=== PATIENT | male | born 1960 | race Caucasian/White ===

== ENCOUNTER 2022-07-29 16:02 | Inpatient (IN) | payer OTHER, MEDICAID ==
[~2022-07-29] VITALS: Ht 177.8 cm; Wt 64.4 kg
[2022-07-29 16:22] VITALS: BP_SYST 134
[2022-07-29 17:11] LABS: BASOPHILS % (AUTO) 0.7 % (0.0-2.0); EOSINOPHILS # (AUTO) 0.1 K/uL (0.0-0.4); EOSINOPHILS % (AUTO) 2.4 % (0.0-4.0); HEMATOCRIT 22.1 % (36-54); HEMOGLOBIN 7.5 g/dL (14.0-18.0); LYMPHOCYTES # (AUTO) 0.9 K/uL (1.0-5.5); LYMPHOCYTES % (AUTO) 17.4 % (20.5-51.5); MEAN CORPUSCULAR HEMOGLOBIN 33 pg (27-31); MEAN CORPUSCULAR HGB CONC 34 % (32-36); MEAN CORPUSCULAR VOLUME 96 fL (79.0-98.0); MONOCYTES # (AUTO) 0.5 K/uL (0.0-1.0); MONOCYTES % (AUTO) 10.1 % (1.7-9.3); NEUTROPHILS # (AUTO) 3.6 K/uL (1.8-7.7); NEUTROPHILS % (AUTO) 69.4 % (40.0-70.0); PLATELET COUNT (AUTO) 204 K/uL (130-430); RED CELL DISTRIBUTION WIDTH 16.9 % (9.0-15.0); WHITE BLOOD COUNT (AUTO) 5.2 K/uL (4.8-10.8)
[2022-07-29] MEDS ORDERED: FOLI0.8T42 GT (17:20)
[2022-07-29] MEDS ORDERED: LEVO750T64 GT (17:20)
[2022-07-29] MEDS ORDERED: EPOE3000 IJ (17:20)
[2022-07-29] MEDS ORDERED: XOP.63 NEB (17:20)
[2022-07-29] MEDS ORDERED: ACET160S2 GT (17:20)
[2022-07-29] MEDS ORDERED: ASCO500T20 GT (17:20)
[2022-07-29] MEDS ORDERED: DORZ10DR9 LEFT EYE (17:20)
[2022-07-29] MEDS ORDERED: SSNOVOLOG SUBCUT (17:20)
[2022-07-29] MEDS ORDERED: HYDR-3917 PO (17:20)
[2022-07-29] MEDS ORDERED: GLUC1KIT IJ (17:20)
[2022-07-29] MEDS ORDERED: APIX2.5T GT (17:20)
[2022-07-29] MEDS ORDERED: BRI.2% RIGHT EYE (17:20)
[2022-07-29] MEDS ORDERED: LORA-259 GT (17:20)
[2022-07-29] MEDS ORDERED: FER300L GT (17:20)
[2022-07-29] MEDS ORDERED: MIDO2.5T GT (17:20)
[2022-07-29 17:28] LABS: ANION GAP 7 (5-15); CHLORIDE 97 mmol/L (98-107); CREATININE 2.78 mg/dL (0.55-1.30); GFR AFRICAN AMERICAN 30 mL/min (>90); GLUCOSE 106 mg/dL (70-99); UREA NITROGEN, BLOOD 45 mg/dL (8-21)
[2022-07-29 17:35] LABS: ALANINE AMINOTRANSFERASE 7 U/L (12-78); ALBUMIN 1.6 g/dL (3.4-4.8); ASPARTATE AMINOTRANSFERASE 13 U/L (10-37); TOTAL BILIRUBIN 0.4 mg/dL (0.0-1.0)
[2022-07-29] MEDS ORDERED: ZOLPIDEM TARTRATE 5 MG TABLET PO PRN (18:15)
[2022-07-29] MEDS ORDERED: DOCUSATE SODIUM 100 MG CAPSULE PO PRN (18:15)
[2022-07-29] MEDS ORDERED: POTASSIUM CHLORIDE 20 MEQ TAB.PRT.SR PO PRN (18:15)
[2022-07-29] MEDS ORDERED: MORPHINE 2 MG/ML INJ. SYRINGE IVP PRN ×2 (18:15)
[2022-07-29] MEDS ORDERED: MUPIROCIN 2% TOPICAL OINTMENT 22 GM NS PRN (18:15)
[2022-07-29] MEDS ORDERED: MAGNESIUM SULFATE 50 ML IV PRN (18:15)
[2022-07-29] MEDS ORDERED: ACETAMINOPHEN 325 MG TABLET PO PRN ×2 (18:15→18:30)
[2022-07-29] MEDS ORDERED: LORazepam 2 MG/ML VIAL IVP PRN (18:15)
[2022-07-29 18:40] LABS: TOTAL IRON BIND. CAPACITY 134 ug/dL (250-450)
[2022-07-29] MEDS: D5NS 1,000 ML IV SCH (20:46)
[2022-07-29] MEDS ORDERED: HEPARIN SODIUM,PORCINE 5,000 UNITS/ML VIAL SUBCUT SCH (21:00)
[2022-07-29 21:06] VITALS: BP_SYST 144
[2022-07-29] MEDS: ONDANSETRON HCL 4 MG/2 ML VIAL IVP PRN (21:51)
[2022-07-29 23:00] VITALS: BP_SYST 144
[2022-07-30] VITALS (8 sets, daily range): BP systolic 124–149
[2022-07-30] MEDS: D5NS 1,000 ML IV SCH ×2 (05:23→14:30)
[2022-07-30] MEDS ORDERED: DEXTROSE 50% JECT 50 ML DISP.SYRIN IVP PRN (08:00)
[2022-07-30] MEDS ORDERED: INSULIN LISPRO SLIDING SCALE 100 UNITS/ML, 3 ML VIAL (humaLOG) SUBCUT PRN (08:00)
[2022-07-30] MEDS ORDERED: APIXABAN 2.5 MG TABLET GT SCH (09:00)
[2022-07-30] MEDS: FERROUS SULFATE 300 MG/5 ML UDC GT SCH ×2 (09:05→21:48)
[2022-07-30] MEDS: ASCORBIC ACID 500 MG TABLET GT SCH (09:05)
[2022-07-30] MEDS ORDERED: LIPASE/PROTEASE/AMYLASE 1 CAP GT ONE (09:30)
[2022-07-30 09:55] LABS: CALCIUM 7.7 mg/dL (8.4-11.0); CREATININE 3.2 mg/dL (0.55-1.30)
[2022-07-30 10:19] LABS: BASOPHILS % (AUTO) 0.7 % (0.0-2.0); EOSINOPHILS # (AUTO) 0.1 K/uL (0.0-0.4); EOSINOPHILS % (AUTO) 1.1 % (0.0-4.0); LYMPHOCYTES # (AUTO) 0.9 K/uL (1.0-5.5); LYMPHOCYTES % (AUTO) 16.2 % (20.5-51.5); MEAN CORPUSCULAR HEMOGLOBIN 32 pg (27-31); MEAN CORPUSCULAR HGB CONC 33 % (32-36); MEAN CORPUSCULAR VOLUME 98 fL (79.0-98.0); MONOCYTES # (AUTO) 0.4 K/uL (0.0-1.0); MONOCYTES % (AUTO) 6.6 % (1.7-9.3); NEUTROPHILS # (AUTO) 4.1 K/uL (1.8-7.7); NEUTROPHILS % (AUTO) 75.4 % (40.0-70.0); PLATELET COUNT (AUTO) 193 K/uL (130-430); RED BLOOD CELL COUNT(AUTO) 2.01 MIL/uL (4.2-6.2); RED CELL DISTRIBUTION WIDTH 16.5 % (9.0-15.0); WHITE BLOOD COUNT (AUTO) 5.5 K/uL (4.8-10.8)
[2022-07-30 10:25] LABS: HEMOGLOBIN 6.4 g/dL (14.0-18.0)
[2022-07-30 10:26] LABS: HEMATOCRIT 19.7 % (36-54)
[2022-07-30] MEDS ORDERED: PANTOPRAZOLE SODIUM 40 MG/VIAL (PROTONIX) IVP ONE (12:00)
[2022-07-30] MEDS: DORZOLAMIDE 2% OPHTHALMIC SOLN 5ML OP SCH ×2 (12:08→21:48)
[2022-07-30] MEDS: BRIMONIDINE TARTRATE 0.2% 5 mL EYE DROPS RIGHT EYE SCH ×2 (12:08→21:47)
[2022-07-30] MEDS ORDERED: GOLYTELY / COLYTE SOLUTION 4 LITERS GT ONE (18:00)
[2022-07-31 00:45] VITALS: BP_SYST 141
[2022-07-31] MEDS: ONDANSETRON HCL 4 MG/2 ML VIAL IVP PRN (03:05)
[2022-07-31] MEDS: D5NS 1,000 ML IV SCH ×3 (03:06→20:21)
[2022-07-31 05:36] LABS: BASOPHILS % (AUTO) 0.4 % (0.0-2.0); EOSINOPHILS # (AUTO) 0.1 K/uL (0.0-0.4); HEMATOCRIT 26.3 % (36-54); HEMOGLOBIN 8.8 g/dL (14.0-18.0); LYMPHOCYTES % (AUTO) 15.3 % (20.5-51.5); MEAN CORPUSCULAR HEMOGLOBIN 32 pg (27-31); MEAN CORPUSCULAR HGB CONC 34 % (32-36); MEAN CORPUSCULAR VOLUME 96 fL (79.0-98.0); MONOCYTES # (AUTO) 0.4 K/uL (0.0-1.0); MONOCYTES % (AUTO) 6.3 % (1.7-9.3); NEUTROPHILS # (AUTO) 5.2 K/uL (1.8-7.7); PLATELET COUNT (AUTO) 200 K/uL (130-430); RED BLOOD CELL COUNT(AUTO) 2.75 MIL/uL (4.2-6.2); RED CELL DISTRIBUTION WIDTH 15.7 % (9.0-15.0); WHITE BLOOD COUNT (AUTO) 6.7 K/uL (4.8-10.8)
[2022-07-31 06:02] LABS: INR 1.3 (0.80-1.20); PROTHROMBIN TIME 12.9 SECS (9.5-12.5)
[2022-07-31 06:09] LABS: CALCIUM 7.9 mg/dL (8.4-11.0); CREATININE 3.62 mg/dL (0.55-1.30)
[2022-07-31 08:00] VITALS: BP_SYST 161
[2022-07-31] MEDS ORDERED: MIDAZOLAM HCL 5 MG/5 ML VIAL ONE (08:08)
[2022-07-31] MEDS ORDERED: SIMETHICONE 40 MG/0.6 ML ML ONE (08:08)
[2022-07-31] MEDS ORDERED: MEPERIDINE 50 MG/ML VIAL ONE (08:08)
[2022-07-31] MEDS: PANTOPRAZOLE SODIUM 40 MG TAB PO SCH (09:00)
[2022-07-31] MEDS: ASCORBIC ACID 500 MG TABLET GT SCH (09:00)
[2022-07-31] MEDS: FERROUS SULFATE 300 MG/5 ML UDC GT SCH ×2 (09:00→20:35)
[2022-07-31] MEDS: DORZOLAMIDE 2% OPHTHALMIC SOLN 5ML OP SCH ×2 (10:03→20:56)
[2022-07-31] MEDS: BRIMONIDINE TARTRATE 0.2% 5 mL EYE DROPS RIGHT EYE SCH ×2 (10:04→20:56)
[2022-07-31 12:00] VITALS: BP_SYST 166
[2022-07-31 16:00] VITALS: BP_SYST 171
[2022-07-31 19:06] LABS: FERRITIN 920 ng/mL (30-400)
[2022-07-31 20:00] VITALS: BP_SYST 141
[2022-08-01] VITALS (7 sets, daily range): BP systolic 131–159
[2022-08-01 01:06] LABS: FOLATE (FOLIC ACID) >20.0 ng/mL (>3.0)
[2022-08-01] MEDS: D5NS 1,000 ML IV SCH ×2 (05:50→16:30)
[2022-08-01 08:23] LABS: BASOPHILS % (AUTO) 0.5 % (0.0-2.0); EOSINOPHILS # (AUTO) 0.1 K/uL (0.0-0.4); EOSINOPHILS % (AUTO) 1.3 % (0.0-4.0); HEMATOCRIT 23.2 % (36-54); HEMOGLOBIN 7.9 g/dL (14.0-18.0); LYMPHOCYTES # (AUTO) 1.1 K/uL (1.0-5.5); LYMPHOCYTES % (AUTO) 16.3 % (20.5-51.5); MEAN CORPUSCULAR HEMOGLOBIN 33 pg (27-31); MEAN CORPUSCULAR HGB CONC 34 % (32-36); MEAN CORPUSCULAR VOLUME 96 fL (79.0-98.0); MONOCYTES # (AUTO) 0.4 K/uL (0.0-1.0); MONOCYTES % (AUTO) 5.6 % (1.7-9.3); NEUTROPHILS # (AUTO) 5.3 K/uL (1.8-7.7); NEUTROPHILS % (AUTO) 76.3 % (40.0-70.0); PLATELET COUNT (AUTO) 183 K/uL (130-430); RED BLOOD CELL COUNT(AUTO) 2.42 MIL/uL (4.2-6.2); RED CELL DISTRIBUTION WIDTH 15.7 % (9.0-15.0)
[2022-08-01 08:36] LABS: CALCIUM 7.7 mg/dL (8.4-11.0); CREATININE 4.17 mg/dL (0.55-1.30)
[2022-08-01] MEDS: PANTOPRAZOLE SODIUM 40 MG TAB PO SCH (09:14)
[2022-08-01] MEDS: BRIMONIDINE TARTRATE 0.2% 5 mL EYE DROPS RIGHT EYE SCH (09:14)
[2022-08-01] MEDS: FERROUS SULFATE 300 MG/5 ML UDC GT SCH (09:14)
[2022-08-01] MEDS: ASCORBIC ACID 500 MG TABLET GT SCH (09:14)
[2022-08-01] MEDS: DORZOLAMIDE 2% OPHTHALMIC SOLN 5ML OP SCH (09:14)
[2022-08-01] MEDS: IPRATROPIUM/ALBUTEROL SULFATE 3 ML AMPUL.NEB (DUONEB) INH PRN ×2 (10:38→19:25)
[2022-08-01] MEDS ORDERED: HEPARIN SODIUM,PORCINE 5,000 UNITS/ML VIAL ONE (15:58)
== END 2022-08-01 21:00 | DRG 393 ==
LOC: SED 16:02 → STU 18:14
PROVIDERS: ADMIT General Practice; ATTEND General Practice
PROC: 5A1945Z Respiratory Ventilation, 24-96 Consecutive Hours (ICD-10-PCS; 2022-07-29)
PROC: 30233N1 Transfusion of Nonautologous Red Blood Cells into Peripheral Vein, Percutaneous Approach (ICD-10-PCS; 2022-07-30)
PROC: 0DHA3UZ Insertion of Feeding Device into Jejunum, Percutaneous Approach (ICD-10-PCS; 2022-07-31)
PROC: 5A1D70Z Performance of Urinary Filtration, Intermittent, Less than 6 Hours Per Day (ICD-10-PCS; 2022-07-31)
PROC: 0DBN8ZZ Excision of Sigmoid Colon, Via Natural or Artificial Opening Endoscopic (ICD-10-PCS; principal; 2022-07-31 11:15)
PROC: 0DPDXUZ Removal of Feeding Device from Lower Intestinal Tract, External Approach (ICD-10-PCS; 2022-07-31 11:15)
DX: K94.23 Gastrostomy malfunction (principal); E43 Unspecified severe protein-calorie malnutrition; N17.0 Acute kidney failure with tubular necrosis; L89.154 Pressure ulcer of sacral region, stage 4; R53.2 Functional quadriplegia; J96.21 Acute and chronic respiratory failure with hypoxia; K29.71 Gastritis, unspecified, with bleeding; N18.6 End stage renal disease; Z99.11 Dependence on respirator [ventilator] status; E87.1 Hypo-osmolality and hyponatremia; K31.6 Fistula of stomach and duodenum; J90 Pleural effusion, not elsewhere classified; I12.0 Hypertensive chronic kidney disease with stage 5 chronic kidney disease or end stage renal disease; R13.10 Dysphagia, unspecified; E87.6 Hypokalemia; E83.51 Hypocalcemia; D63.8 Anemia in other chronic diseases classified elsewhere; D63.1 Anemia in chronic kidney disease; Z20.822 Contact with and (suspected) exposure to COVID-19; K63.5 Polyp of colon; E11.22 Type 2 diabetes mellitus with diabetic chronic kidney disease; Z74.01 Bed confinement status; Z86.73 Personal history of transient ischemic attack (TIA), and cerebral infarction without residual deficits; Z86.79 Personal history of other diseases of the circulatory system; Z99.2 Dependence on renal dialysis; Z89.512 Acquired absence of left leg below knee; Z89.511 Acquired absence of right leg below knee; Z68.20 Body mass index [BMI] 20.0-20.9, adult
CPT/HCPCS: 36415; 45385; 71045; 74018; 80048; 80053; 82607; 82728; 82746; 83037; 83540; 83550; 83735; 84484; 85025; 85610-TC; 86886; 86900; 86901; 86920; 87081; 87101; 88305; 93005; 94002; 94003; 94640; 94760; 99285; C9113; G0378; J1644; J2175; J2250; J2270; J2405; P9021

== ENCOUNTER 2022-08-19 17:44 | Inpatient (IN) | payer OTHER, MEDICAID ==
[~2022-08-19] VITALS: Ht 182.9 cm; Wt 68.2 kg
[~2022-08-19 17:44] MED LIST: ACET160S2 GT; APIX2.5T GT; ASCO500T20 GT; BRI.2% RIGHT EYE; DORZ10DR9 LEFT EYE; EPOE3000 IJ; FER300L GT; FOLI0.8T42 GT; GLUC1KIT IJ; HYDR-3917 PO; LEVO750T64 GT; LORA-259 GT; MIDO2.5T GT; SSNOVOLOG SUBCUT; XOP.63 NEB
[2022-08-19 17:54] VITALS: BP_SYST 115
--- NOTE | 2022-08-19 18:00 | NUR ---
Placed in room 01 . Placed on playground monitor, blood pressure machine and pulse oximeter. To gown for exam. Side rails up. Report given to JULIETA HOLMAN.
--- NOTE | 2022-08-19 18:05 | NUR ---
PT BIBA AWAKE AND ALERT AOX1, NO SOB OR DISTRESS. PT COMING FROM [facility], FOR LOW HGB 6.2. PT HAS ASSCITES. 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 PT IS VENT DEPENDENT.
[2022-08-19] MEDS ORDERED: ATRMDI INH (18:09)
[2022-08-19] MEDS ORDERED: CHLO473M5 PO (18:09)
--- NOTE | 2022-08-19 18:10 | NUR ---
RT AT BEDSIDE
--- NOTE | 2022-08-19 18:10 | NUR ---
Medication reconciliation completed with information provided by [facility]. Any prior medication reconciliation on file was reviewed and corrected.
--- NOTE | 2022-08-19 18:15 | NUR ---
MD REED AT BEDSIDE
--- NOTE | 2022-08-19 19:05 | NUR ---
REPORT GIVEN TO MARLENE RENDON. PT STABLE
[2022-08-19 19:07] LABS: BASOPHILS % (AUTO) 0.4 % (0.0-2.0); EOSINOPHILS % (AUTO) 0.4 % (0.0-4.0); HEMATOCRIT 22.4 % (36-54); HEMOGLOBIN 7.2 g/dL (14.0-18.0); LYMPHOCYTES # (AUTO) 0.6 K/uL (1.0-5.5); LYMPHOCYTES % (AUTO) 12.3 % (20.5-51.5); MEAN CORPUSCULAR HEMOGLOBIN 32 pg (27-31); MEAN CORPUSCULAR HGB CONC 32 % (32-36); MEAN CORPUSCULAR VOLUME 98 fL (79.0-98.0); MONOCYTES # (AUTO) 0.4 K/uL (0.0-1.0); NEUTROPHILS # (AUTO) 4.1 K/uL (1.8-7.7); NEUTROPHILS % (AUTO) 78.9 % (40.0-70.0); PLATELET COUNT (AUTO) 145 K/uL (130-430); RED BLOOD CELL COUNT(AUTO) 2.28 MIL/uL (4.2-6.2); RED CELL DISTRIBUTION WIDTH 16.7 % (9.0-15.0); WHITE BLOOD COUNT (AUTO) 5.2 K/uL (4.8-10.8)
--- NOTE | 2022-08-19 19:15 | NUR ---
PT RECVD FROM MANDA RENDON. PT LAYING IN BED, CARD MONITOR ON, PT ON VENT. VSS, PENDING LABS
[2022-08-19 19:24] LABS: ANION GAP 11 (5-15); CHLORIDE 100 mmol/L (98-107); CREATININE 2.86 mg/dL (0.55-1.30); GFR AFRICAN AMERICAN 29 mL/min (>90); GLUCOSE 277 mg/dL (70-99); UREA NITROGEN, BLOOD 52 mg/dL (8-21)
[2022-08-19 19:27] LABS: INR 1.1 (0.80-1.20); PROTHROMBIN TIME 11.7 SECS (9.5-12.5)
[2022-08-19 19:37] LABS: ALBUMIN 1.4 g/dL (3.4-4.8); ASPARTATE AMINOTRANSFERASE 15 U/L (10-37); TOTAL BILIRUBIN 0.2 mg/dL (0.0-1.0)
--- NOTE | 2022-08-19 20:26 | NUR ---
UPON PT ASSESMNT, PT FELT WARM TO TOUCH. RECTAL TEMP 100.8, DR JUAN GONZALES
[2022-08-19] MEDS ORDERED: NACL 0.9% 1,000 ML IV ONE (20:30)
[2022-08-19] MEDS ORDERED: cefTRIAXone 1 GM in D5W 50 ML IV ONE (20:30)
[2022-08-19 20:47] LABS: ALANINE AMINOTRANSFERASE 3 U/L (12-78)
[2022-08-19] MEDS ORDERED: cefTRIAXone 1 GM VIAL ONE (20:55)
--- NOTE | 2022-08-19 21:00 | NUR ---
MRSA SWAB COLLECTED AND SENT TO LAB.
--- NOTE | 2022-08-19 21:02 | NUR ---
UA OBTAINED VIA TRAIGHT CATH PER ORDERS, PT TOLERATED WELL
--- NOTE | 2022-08-19 21:07 | NUR ---
Admit bed requested Patient will be admitted to care of . Admitted to ICU unit. Diagnosis SEPSIS Inpatient (Yes or No) YES Observation (Yes or No) NO Orientation concerns or request close to nursing station (Yes or No) YES Covid Status PENDING On vent or bipap VENT Isolation requirements N Needs a sitter NO From Home (Yes or if No enter name of facility) [place] Requires Dialysis (Yes or No) DIALYSIS(T,TH,SAT) Med Rec Completed (Yes of No) YES
[2022-08-19] MEDS ORDERED: VANCOMYCIN HCL 1 GM/NS PREMIX 250 ML IV ONE (22:00)
[2022-08-19 23:04] LABS: BILIRUBIN,URINE NEGATIVE (NEGATIVE); BLOOD, URINE NEGATIVE (NEGATIVE); COLOR,URINE YELLOW (YELLOW); GLUCOSE,URINE TRACE (NEGATIVE); KETONES,URINE NEGATIVE (NEGATIVE); LEUKOCYTE ESTERASE ,URINE NEGATIVE (NEGATIVE); NITRITE, URINE NEGATIVE (NEGATIVE); PROTEIN URINE 2+ (NEGATIVE); UROBILINOGEN,URINE 0.2 (0.2-1.0)
[2022-08-19 23:06] LABS: CLARITY/URINE HAZY (CLEAR)
[2022-08-19 23:18] LABS: BACTERIA,URINE RARE /HPF (None Seen); RBC,URINE 0-3 /HPF (0-3)
[2022-08-19] MEDS ORDERED: VANCOMYCIN HCL 1000 MG/VIAL IV ONE (23:43)
[2022-08-19 23:56] VITALS: BP_SYST 89
[2022-08-20] VITALS (35 sets, daily range): BP systolic 83–163
--- NOTE | 2022-08-20 00:46 | NUR ---
PT TRANSPORTED TO ICU BY PRIMARY RN, W/RT. REPORT GIVEN TO EFRAIN RENDON. PT STABLE, NO INCIDENT NOTED
--- NOTE | 2022-08-20 00:54 | NUR ---
Opening notes Received report from endorsing [facility] for continuity of care. Patient was transferred to ICU bed 7 from ER. Patient is trach to vent and nonverbal but nods to questions. Patient's vital signs blood pressure 83/39, heart rate 63, respirations 16, and SPO2 100% on mechanical ventilator. Ventilator settings AC 16, tidal volume 450, FIO2 40%, and peep of 6. Patient is on dialysis and anuric. G-tube is clamped. Bed is locked and in lowest position, call light button within reach, fall and safety precautions is in place.
[2022-08-20 04:51] LABS: BASOPHILS % (AUTO) 0.4 % (0.0-2.0); EOSINOPHILS % (AUTO) 0.7 % (0.0-4.0); LYMPHOCYTES % (AUTO) 19.6 % (20.5-51.5); MEAN CORPUSCULAR HEMOGLOBIN 31 pg (27-31); MEAN CORPUSCULAR HGB CONC 32 % (32-36); MEAN CORPUSCULAR VOLUME 98 fL (79.0-98.0); MONOCYTES # (AUTO) 0.5 K/uL (0.0-1.0); MONOCYTES % (AUTO) 9.5 % (1.7-9.3); NEUTROPHILS # (AUTO) 3.5 K/uL (1.8-7.7); NEUTROPHILS % (AUTO) 69.8 % (40.0-70.0); PLATELET COUNT (AUTO) 128 K/uL (130-430); RED BLOOD CELL COUNT(AUTO) 2.14 MIL/uL (4.2-6.2); RED CELL DISTRIBUTION WIDTH 17.2 % (9.0-15.0)
[2022-08-20 05:10] LABS: CALCIUM 7.8 mg/dL (8.4-11.0); CREATININE 2.9 mg/dL (0.55-1.30)
[2022-08-20 06:28] LABS: HEMOGLOBIN 6.7 g/dL (14.0-18.0)
[2022-08-20] MEDS ORDERED: ACETAMINOPHEN 650 MG/20.3 ML UDC GT PRN (07:30)
[2022-08-20] MEDS ORDERED: VANCOMYCIN HCL 1 GM/NS PREMIX 250 ML IV SCH (07:30)
--- NOTE | 2022-08-20 07:30 | NUR ---
PATIENT IN BED, NO SIGNS OR SYMPTOMS OF DISTRESS, TRACH TO VENT AC 16 TV 45 FIO2 30% PEEP 6. RIGHT HAND 22G PERIPHERAL IV RUNNING NS TKO. RIJ DIALYSIS CATHETER. BED IN LOWEST LOCKED POSITION, CALL LIGHT WITHIN REACH.
[2022-08-20 08:26] LABS: TOTAL IRON BIND. CAPACITY 75 ug/dL (250-450)
--- NOTE | 2022-08-20 08:52 | NUR ---
DR RUSH ROUNDED ON PATIENT, ORDERED FOR ABG, CT ABDOMEN PELVIS WITHOUT CONTRAST TO RULE OUT GI BLEED SINCE PATIENT HAS ABDOMINAL DISTENSION AND A DROP IN HEMOGLOBIN. NO OTHER CHANGE IN ORDERS.
--- NOTE | 2022-08-20 09:43 | NUR ---
PATIENT RETURNED FROM CT ABDOMEN/PELVIS WITH NO CONTRAST. TRANSFERRED WITH RADIOLOGY, RESPIRATORY THERAPY, AND PRIMARY RN. CONTINUOUS MONITORING USED. PROPER ISOLATION PRECAUTIONS USED.
--- NOTE | 2022-08-20 09:57 | NUR ---
0913 CHANGED VT TO 400ML PER MD RUSH.
--- NOTE | 2022-08-20 09:57 | NUR ---
[id number] AND BACK TO ICU 7 VIA AMBU BAG WITH 15LPM. NO RESPIRATORY DISTRESS NOTED. PATIENT BACK ON VENT SETTINGS WITH AC16, 400, +6, FIO2 30%.
--- NOTE | 2022-08-20 09:58 | NUR ---
NOTIFIED DR FLOWERS OF K+ 3.3, STATED THAT THE POTASSIUM SHOULD BE CORRECTED WITH DIALYSIS.
--- NOTE | 2022-08-20 10:00 | NUR ---
DR FLOWERS ROUNDED ON PATIENT. ORDERED FOR HEMODIALYSIS, NEPHROLOGY CONSULT, PRBCs TO BE TRANSFUSED WITH HEMODIALYSIS, CONSULT DR EMERY FOR POSSIBLE DEBRIDEMENT OF SACRAL/ LOW BACK WOUND.
--- NOTE | 2022-08-20 11:53 | NUR ---
Called Dr. Lerma with a consult,spoke with Sasha from doctors office
--- NOTE | 2022-08-20 12:00 | NUR ---
PAGED DR FLOWERS, AWAITING CALL BACK. PATIENT EXPRESSING HE IS IN PAIN AND HOME MEDICATIONS HAVE NOT BEEN CONTINUED IN PATIENT. SON EDD AT BEDSIDE.
--- NOTE | 2022-08-20 14:00 | NUR ---
DR EMERY ROUNDED ON PATIENT TWICE DURING SHIFT. HE WANTS TO DO DEBRIDEMENT TO LOW BACK/SACRAL ULCER. HEMODIALYSIS ORDERED AND DR EMERY ORDERED TO DO DIALYSIS STAT SO THAT SURGERY CAN BE PERFORMED AFTER. DR EMERY DISCUSSED RISK AND INDICATION OF SURGERY WITH SON EDD AND CONSENT SIGNED.
--- NOTE | 2022-08-20 15:00 | NUR ---
PAGED DR FLOWERS 2ND TIME FOR PAIN MANAGEMENT AND PATIENT SON EDD WANTS TO DISCUSS DNR STATUS. NO ANSWER, AWAITING CALL BACK.
--- NOTE | 2022-08-20 16:00 | NUR ---
PAGED DR RUSH, AWAITING CALL BACK. STILL AWAITING CALL BACK FROM DR FLOWERS OR VI[facility] MANUEL FOR PAIN MANAGEMENT AND TO DISCUSS CODE STATUS WITH SON EDD.
--- NOTE | 2022-08-20 17:00 | NUR ---
DR EMERY STATED THAT ANESTHESIOLOGIST WILL NOT DO SURGERY IF PATIENT RECEIVED DIALYSIS PRIOR. NOTIFIED DR HERNANDEZ AND DR HERNANDEZ ORDERED TO POSTPONE DIALYSIS UNTIL AFTER SURGERY IS PERFORMED. DR EMERY IS AWARE AND SURGERY IS SCHEDULED FOR 1800. DR EMERY ORDERED TO START BLOOD TRANSFUSION NOW. LEFT FOREARM 20G IV INTACT PATENT AND RIGHT WRIST 22G INTACT PATENT.
--- NOTE | 2022-08-20 18:42 | NUR ---
PER DIALYSIS NURSE VALENTÍN, SHE STATES THAT DR FLOWERS WANTS HEMODIALYSIS TO BE POSTPONED TO TOMORROW MORNING.
--- NOTE | 2022-08-20 18:51 | NUR ---
SPOKE WITH EDD THE PATIENT SON ON HIS CELLPHONE AT [phone]. SPOKE WITH DR FLOWERS ON THE PHONE AND NOTIFIED THAT SON WANTS TO DISCUSS DNR STATUS AND PROVIDE SONS CELLPHONE NUMBER TO DR FLOWERS. ASKED DR FLOWERS TO CALL BACK WITH CODE STATUS SO THAT THE CODE FORM CAN BE SIGNED.
--- NOTE | 2022-08-20 19:00 | NUR ---
Opening notes Received patient from morning shift RN for continuity of care. Patient is lying in bed with IVF NS @ TKO, and blood @ 150 mL/hr. Patient is going to surgery right after shift change for irrigation and excisional debridement of sacral pressure ulcer. Patient's vital signs blood pressure 103/47, heart rate 57, respirations 26, and SPO2 100% on mechanical ventilator. Ventilator settings AC 16, tidal volume 400, FIO2 30%, and peep of 5. Bed is locked and in lowest position, call light button within reach, fall and safety precautions are in place.
[2022-08-20] MEDS ORDERED: KETOROLAC TROMETHAMINE 15 MG VIAL IVP ONE (20:30)
[2022-08-20] MEDS ORDERED: NS IRRIG SOLN 1000 ML IR ONE (21:35)
[2022-08-20] MEDS ORDERED: NS 1000 ML IV.SOLN IV ONE (21:35)
[2022-08-20] MEDS ORDERED: BUPIVACAINE /PF 0.25% 30 ML VIAL INJ ONE (21:35)
[2022-08-20] MEDS ORDERED: ROCURONIUM BROMIDE 10 MG/ML (ZEMURON) ONE (21:35)
[2022-08-20] MEDS ORDERED: SEVOFLURANE 15 MIN GAS INH ONE (21:35)
[2022-08-20] MEDS: cefTRIAXone 1 GM IVPB PREMIX 50 ML IV SCH (22:37)
[2022-08-20] MEDS: VANCOMYCIN HCL 750 MG in NS 250 ML IV SCH (23:55)
[2022-08-21] VITALS (23 sets, daily range): BP systolic 90–160
[2022-08-21 05:39] LABS: CALCIUM 7.1 mg/dL (8.4-11.0); CREATININE 3.33 mg/dL (0.55-1.30)
[2022-08-21 05:54] LABS: BASOPHILS % (AUTO) 0.6 % (0.0-2.0); EOSINOPHILS # (AUTO) 0.1 K/uL (0.0-0.4); EOSINOPHILS % (AUTO) 1.3 % (0.0-4.0); MEAN CORPUSCULAR HEMOGLOBIN 31 pg (27-31); MEAN CORPUSCULAR HGB CONC 33 % (32-36); MEAN CORPUSCULAR VOLUME 96 fL (79.0-98.0); MONOCYTES # (AUTO) 0.5 K/uL (0.0-1.0); MONOCYTES % (AUTO) 8.6 % (1.7-9.3); NEUTROPHILS % (AUTO) 71.5 % (40.0-70.0); PLATELET COUNT (AUTO) 126 K/uL (130-430); RED BLOOD CELL COUNT(AUTO) 2.23 MIL/uL (4.2-6.2); RED CELL DISTRIBUTION WIDTH 15.9 % (9.0-15.0); WHITE BLOOD COUNT (AUTO) 5.5 K/uL (4.8-10.8)
--- NOTE | 2022-08-21 06:06 | NUR ---
CONSULTATION PAGED/CALLED Reason for Consultation: Bradycardia Person Who was Notified: Gene Consulting Physician: Dr Street Converter Supervisor Specialty: Cardiology Ordering Physician: Dr Gaitan
[2022-08-21 06:15] LABS: HEMATOCRIT 21.3 % (36-54)
--- NOTE | 2022-08-21 07:52 | NUR ---
SPOKE WITH ARI REQUESTING ORDERS FROM DR. FLOWERS AT RN'S REQUEST
[2022-08-21] MEDS ORDERED: Vancomycin Per Pharmacy XX (11:57)
[2022-08-21] MEDS ORDERED: ROCPM1 IV (11:59)
[2022-08-21] MEDS: PANTOPRAZOLE SODIUM 40 MG/VIAL (PROTONIX) IVP SCH (12:15)
[2022-08-21] MEDS ORDERED: TOBRAMYCIN 300MG/5ML INH AMPUL.NEB INH ONE (12:15)
--- NOTE | 2022-08-21 16:23 | NUR ---
[facility] CALLED CHARGE NURSE OF MULUGETA SPEAR. PT REQUIRED TO BE STABILIZED BEFORE DISCHARGE. BLOOD PRESSURE READING 163/71, 153/107, HEART RATE 64, 137/74, 140/81.
--- NOTE | 2022-08-21 16:25 | NUR ---
SPOKE WITH ALONZO REQUESTING ORDERS FROM DR. FLOWERS.
--- NOTE | 2022-08-21 16:30 | NUR ---
REPORTED TO DR FLOWERS ON EARLIER BP SITUATION. WILL REEVALUATE PT'S BLOOD PRESSURE READING, USE CLONIDINE TABLET THRU THE G TUBE AND SEND THE PATIENT TO [facility].
[2022-08-21] MEDS ORDERED: cloNIDine HCL 0.1 MG TABLET GT ONE (16:45)
--- NOTE | 2022-08-21 19:30 | NUR ---
RECEIVED AROUSABLE, NONVERBAL, TRACHE SHILEY #8 CONNECTED TO VENT. AC 16, TV400, FIO2 30%, PEEP 5. BILATERAL LUNG SOUNDS DIMINISHED AT THE BASES. SAT 100%. SCALE EXPERT IS SHOWING SB, RATE 56/MIN, PULSES ARE PALPABLE. LFA PIV, GAUGE 20, SALINE LOCK, PATENT AND FLUSHED. RIGHT CHEST DAVE CATH INTACT, DRESSING DRY. ABDOMEN IS SOFT AND NON-DISTENDED. G-TUBE FEEDING OF NEPHRO RESUMMED AT 30 ML/HR WHILE WAITING FOR TRANSPORT. AFEBRILE. PATIENT HAS RIGHT BKA, LEFT FOOT AMPUTEE. SACRAL WOUND DRESSING DRY AND INTACT. ANURIC.
[2022-08-21] MEDS: TOBRAMYCIN 300MG/5ML INH AMPUL.NEB INH SCH (19:40)
[2022-08-21] MEDS: cefTRIAXone 1 GM IVPB PREMIX 50 ML IV SCH (21:32)
[2022-08-21] MEDS ORDERED: cloNIDine HCL 0.1 MG TABLET GT PRN (22:00)
[2022-08-21] MEDS: VANCOMYCIN HCL 750 MG in NS 250 ML IV SCH (22:46)
[2022-08-22] VITALS (17 sets, daily range): BP systolic 102–141
[2022-08-22] MEDS: TOBRAMYCIN 300MG/5ML INH AMPUL.NEB INH SCH (07:52)
[2022-08-22] MEDS: PANTOPRAZOLE SODIUM 40 MG/VIAL (PROTONIX) IVP SCH (08:37)
--- NOTE | 2022-08-22 09:30 | NUR ---
PT CLEANED UP IN BED, BED BATH WITH NEW FOAM DRESSING TO COCCYX PROPHYLACTICALLY. PT HAD SMALL BM. OGT PLACED AFTER CLEANING, PT TOLERATED WELL. XRAY AT BEDSIDE FOR CHEST 1 VIEW. AWAITING RESULTS AND PLACEMENT OF ETT AND OGT. F/C PLACED WITH STERILE TECHNIQUE. PT TOLERATED WELL. STAT LOCK PLACED AND SECURED TO LEG. BAG PLACED LOWER THAN PATIENT FOR GRAVITY, NO KINKS IN TUBING. Addendum: 08/22/22 at 1205 by Wu Concepcion RN RN CANCELLED NOTE
[2022-08-22 09:47] LABS: BASOPHILS % (AUTO) 0.5 % (0.0-2.0); EOSINOPHILS # (AUTO) 0.1 K/uL (0.0-0.4); HEMATOCRIT 31.3 % (36-54); HEMOGLOBIN 10.4 g/dL (14.0-18.0); LYMPHOCYTES % (AUTO) 16.3 % (20.5-51.5); MEAN CORPUSCULAR HEMOGLOBIN 31 pg (27-31); MEAN CORPUSCULAR HGB CONC 33 % (32-36); MEAN CORPUSCULAR VOLUME 93 fL (79.0-98.0); MONOCYTES # (AUTO) 0.5 K/uL (0.0-1.0); MONOCYTES % (AUTO) 8.7 % (1.7-9.3); NEUTROPHILS # (AUTO) 4.6 K/uL (1.8-7.7); NEUTROPHILS % (AUTO) 73.5 % (40.0-70.0); PLATELET COUNT (AUTO) 136 K/uL (130-430); RED BLOOD CELL COUNT(AUTO) 3.35 MIL/uL (4.2-6.2); RED CELL DISTRIBUTION WIDTH 16.6 % (9.0-15.0); WHITE BLOOD COUNT (AUTO) 6.3 K/uL (4.8-10.8)
[2022-08-22 10:02] LABS: CALCIUM 7.4 mg/dL (8.4-11.0); CREATININE 2.71 mg/dL (0.55-1.30)
--- NOTE | 2022-08-22 11:15 | NUR ---
REPORT CALLED TO JOSE RENDON AT [facility]. PT TO GO TO ROOM 125B. ALL QUESTIONS ANSWERED. PT VSS. AMBULANCE PICKUP WITH RT FOR VENT MANAGEMENT AT 1300 PER TEST PULLER MARY. PT IS A DNR. ALL PAPERWORK TO GO WITH PATIENT TO FACILITY.
--- NOTE | 2022-08-22 13:15 | NUR ---
DISCHARGE TRANSPORTED PT TO A GURNEY VIA AMBULANCE. PT'S SON EDD IN THE UNIT.
== END 2022-08-22 15:17 | disposition home or self-care (01) | DRG 871 ==
LOC: SED 17:44 → SMU 20:55 → SIC 23:17
PROVIDERS: ADMIT Specialist; ATTEND Specialist
PROC: 5A1945Z Respiratory Ventilation, 24-96 Consecutive Hours (ICD-10-PCS; principal; 2022-08-19)
PROC: 0HB6XZZ Excision of Back Skin, External Approach (ICD-10-PCS; 2022-08-20)
PROC: 5A1D70Z Performance of Urinary Filtration, Intermittent, Less than 6 Hours Per Day (ICD-10-PCS; 2022-08-20)
PROC: 30233N1 Transfusion of Nonautologous Red Blood Cells into Peripheral Vein, Percutaneous Approach (ICD-10-PCS; 2022-08-21)
PROC: 5A1D70Z Performance of Urinary Filtration, Intermittent, Less than 6 Hours Per Day (ICD-10-PCS; 2022-08-22)
DX: A41.9 Sepsis, unspecified organism (principal); J15.6 Pneumonia due to other Gram-negative bacteria; J96.20 Acute and chronic respiratory failure, unspecified whether with hypoxia or hypercapnia; N18.6 End stage renal disease; N17.9 Acute kidney failure, unspecified; Z99.11 Dependence on respirator [ventilator] status; J44.0 Chronic obstructive pulmonary disease with (acute) lower respiratory infection; L89.159 Pressure ulcer of sacral region, unspecified stage; D64.9 Anemia, unspecified; E83.51 Hypocalcemia; R13.10 Dysphagia, unspecified; R00.1 Bradycardia, unspecified; Z20.822 Contact with and (suspected) exposure to COVID-19; S31.000A Unspecified open wound of lower back and pelvis without penetration into retroperitoneum, initial encounter; X58.XXXA Exposure to other specified factors, initial encounter; Z79.1 Long term (current) use of non-steroidal anti-inflammatories (NSAID); Z79.899 Other long term (current) drug therapy; Z74.01 Bed confinement status; Z93.1 Gastrostomy status; Z93.0 Tracheostomy status; Z99.2 Dependence on renal dialysis; Z89.511 Acquired absence of right leg below knee; Z86.73 Personal history of transient ischemic attack (TIA), and cerebral infarction without residual deficits; Z79.2 Long term (current) use of antibiotics; Y93.89 Activity, other specified; Y92.89 Other specified places as the place of occurrence of the external cause; Y99.8 Other external cause status
CPT/HCPCS: 36415; 36600; 71045; 76376; 80048; 80053; 80202; 81000; 82140; 82550; 82803; 83540; 83550; 83605; 83880; 84484; 85025; 85610-TC; 85730-TC; 86140; 86886; 86900; 86901; 86920; 87040; 87070-TC; 87081; 87086; 87205-TC; 88304; 93005; 94002; 94003; 94640; 94760; 96365; 96367; 99291; C9113; J0696; J1885; J3260; J3370; J3490; J7030; J7050; P9021